=== PATIENT | female | born 1985 | race Caucasian/White ===

== ENCOUNTER 2021-10-08 00:03 | Emergency (ER) | payer BC ==
[2021-10-08 01:13] VITALS: BP 136/87; PULSE 100; TEMP 98.1; BMI 24.7
[2021-10-08 02:01] LABS: BASO % 0.1 % (0-2.0); EOS % 0.3 % (0-4.5); HEMATOCRIT 38.1 % (32.4-45.2); HEMOGLOBIN 12.8 GM/dL (10.7-15.3); LYMPH % 9.6 % (8-40); MCH 29.3 pg (25.7-33.7); MCHC 33.6 g/dl (32.0-36.0); MEAN CELL VOLUME 87.1 fl (80-96); MEAN PLT VOLUME 8.3 fl (7.5-11.1); MONO % 6.8 % (3.8-10.2); NEUT % 83.2 % (42.8-82.8); PLATELET COUNT 202 10^3/uL (134-434); RBC 4.37 M/mm3 (3.60-5.2); RDW 13.1 % (11.6-15.6); WHITE BLOOD COUNT 8.1 K/mm3 (4.0-10.0)
[2021-10-08 02:29] LABS: CHLORIDE 106 mmol/L (98-107); SODIUM 139 mmol/L (136-145)
[2021-10-08 02:31] LABS: ANION GAP 4 MMOL/L (8-16); BLOOD UREA NITROGEN 10.1 mg/dL (7-18); CALCIUM 9.2 mg/dL (8.5-10.1); CO2 28 mmol/L (21-32); GLUCOSE,RANDOM 114 mg/dL (74-106)
[2021-10-08 02:34] LABS: SGPT/ALT 20 U/L (13-61)
[2021-10-08 02:35] LABS: CREATININE 0.7 mg/dL (0.55-1.3); SGOT/AST 10 U/L (15-37)
[2021-10-08 02:36] LABS: BILIRUBIN,TOTAL 0.3 mg/dL (0.2-1); TOT PROT 7.4 g/dl (6.4-8.2)
[2021-10-08 02:37] LABS: ALK PHOS 72 U/L (45-117)
[2021-10-08 03:04] LABS: ALBUMIN 4.1 g/dl (3.4-5.0)
[2021-10-08] MEDS ORDERED: ACETAMINOPHEN 325 MG TABLET (FP) PO ONE (03:07)
[2021-10-08] MEDS ORDERED: ACETAMINOPHEN 325 MG TABLET (FP) ONE (03:09)
== END 2021-10-08 05:21 | disposition home or self-care (01) ==
LOC: JER 00:03
DX: R07.89 Other chest pain (principal)
CPT/HCPCS: 36415; 71275-TC; 80053; 82550; 84484; 84703; 85025; 85379; 87804; 87807; 93005; 93010; 99285-25; C9803; U0003; U0005

== ENCOUNTER 2021-10-09 09:41 | Emergency (ER) | payer BC ==
[2021-10-09 10:31] VITALS: BP 110/71; PULSE 77; TEMP 97.8; BMI 24.7
[2021-10-09] MEDS ORDERED: IBUPROFEN 400 MG TABLET (FP) PO ONE ×2 (12:17→12:21)
[2021-10-09] MEDS ORDERED: FAMOTIDINE 10 MG TABLET PO ONE (12:17)
[2021-10-09] MEDS ORDERED: MAG HYDROX/AL HYDROX/SIMETH 30 ML UNIT-DOSE CUP PO ONE (12:17)
[2021-10-09] MEDS ORDERED: SUCRALFATE 1 GM TABLET (FP) PO ONE (12:17)
[2021-10-09] MEDS ORDERED: FAMOTIDINE 20 MG TABLET ONE (12:21)
[2021-10-09] MEDS ORDERED: MAG HYDROX/AL HYDROX/SIMETH 30 ML UNIT-DOSE CUP ONE (12:21)
[2021-10-09] MEDS ORDERED: SUCRALFATE 1 GM TABLET (FP) ONE (12:24)
== END 2021-10-09 12:52 | disposition home or self-care (01) ==
LOC: JER 09:41
DX: M79.10 Myalgia, unspecified site (principal)
CPT/HCPCS: 99283-25